=== PATIENT | female | born 1965 | race Caucasian/White ===

== ENCOUNTER 2019-08-24 10:34 | Emergency (ER) | payer OTHER, SELFPAY ==
[2019-08-24 10:38] VITALS: BP 120/102; PULSE 58; RESP 20; TEMP 36.5; O2SAT 98; BMI 28.3
--- NOTE | 2019-08-24 10:55 | DI.RAD.S_ITS ---
PROCEDURE: XR CHEST 1V INDICATIONS: chest pain TECHNIQUE: One view of the chest was acquired. COMPARISON: None. FINDINGS: Surgical changes and devices: None. Lungs and pleura: Lungs are clear. No pleural effusions or pneumothorax. Mediastinum: Mediastinal contours appear normal. Heart size is normal. Bones and chest wall: No suspicious bony lesions. Overlying soft tissues appear unremarkable. IMPRESSION: No acute cardiopulmonary findings. Dictated by: Nicky Ching M.D. on 08/24/2019 at 10:38 Approved by: Nicky Ching M.D. on 08/24/2019 at 10:39
--- NOTE | 2019-08-24 11:08 | ED_ITS ---
HPI - Chest Pain General Chief Complaint: Chest Pain Stated Complaint: Chest pain Time Seen by Provider: 08/24/19 10:38 Source: patient Mode of arrival: Ambulatory Limitations: no limitations History of Present Illness HPI narrative: Patient is a 54-year-old female with history of hypertension hyperlipidemia presenting with chest pain. She said she was driving her short drive to work when she had instant epigastric pain radiating up to her chin. The episodes lasted roughly a couple of seconds she had 4 episodes while driving she had not very much time between episodes. No shortness of breath no prior history of anything like this in the past. She is currently chest pain free now. She did not eat breakfast this morning she did take some of her medications this morning. MD complaint: chest pain Onset (ago): minute(s) Duration: now resolved Onset: during rest Pain location: substernal Quality: sharp Pain radiation: jaw/teeth Exacerbating factors: nothing Related Data Previous Rx's Medication Instructions Recorded azelaic acid [Azelex] 20 % TOPICAL BID PRN #30 gm 11/17/16 levothyroxine 0.05 mg PO QAM #90 tab 01/09/17 gemfibrozil 600 mg PO BIDAC #180 tab 01/16/17 doxycycline monohydrate 50 mg PO BID #60 cap 01/31/17 acyclovir 400 mg PO BID #180 tab 03/09/17 gabapentin [Neurontin] 800 mg PO HSP PRN #120 cap 04/24/17 citalopram 10 mg PO QDAY #90 tab 05/08/17 venlafaxine 75 mg PO SEE INSTRUCTIONS #90 tab 05/22/17 guhywyiclt-rszbuouiig-hvq-cod 0 PO SEE INSTRUCTIONS PRN #20 cap 05/25/17 estradiol 0.5 mg PO QDAY #90 tab 06/08/17 gabapentin 100 mg PO TID #270 cap 06/12/17 lorazepam 0.5 mg PO HSP PRN #28 tab 06/12/17 propranolol 20 mg PO TID #135 tab 06/12/17 Allergies Allergy/AdvReac Type Severity Reaction Status Date / Time latex [LATEX] Allergy Mild RASH Verified 08/24/19 11:35 povidone-iodine Allergy Mild RASH Verified 08/24/19 11:35 [POVIDONE-IODINE] simvastatin [SIMVASTATIN] Allergy Mild MYALGIAS Verified 08/24/19 11:35 Review of Systems Review of Systems Narrative: GENERAL: Denies chills, fatigue, malaise, fever, sweats, travel HEENT: Denies sinus pain, ear pain, sore throat, difficulty swallowing, neck pain RESPIRATORY: Denies dyspnea, cough, wheezing, hemoptysis, sputum. CARDIOVASCULAR: Denies chest pain, palpitations, orthopnea, edema GASTROINTESTINAL: Denies nausea, vomiting, abdominal pain, diarrhea, constipation, melena. : Denies dysuria, frequency, incontinence, hematuria, urinary retention, flank pain. MUSCULOSKELETAL: Denies weakness, joint pain, or bony pain SKIN: No rash, no erythema, no pruritus NEUROLOGIC: Denies weakness, dizziness, headache, numbness, change in speech, confusion PSYCHIATRIC: No concerning psychosocial issues. 12 point review of systems is negative except for those stated above and HPI Patient History Medical History Acquired hypothyroidism (11/17/16) Anxiety disorder (Chronic 04/26/11) Benign essential hypertension (03/17/14) Mixed hyperlipidemia (10/11/15) Surgical History Status post cone biopsy of cervix Status post endometrial ablation Status post laparoscopic cholecystectomy Status post laparoscopic supracervical hysterectomy (03/15/15) Status post tubal ligation Family History (Updated 08/24/19 @ 11:14 by Trice Hanson DO) Father No problems noted. Social History Smoking Status: Never smoker alcohol intake frequency: other Substance Use Type: does not use Exam Initial Vital Signs Initial Vital Signs: Vital Signs Temperature 97.7 F 08/24/19 10:38 Pulse Rate 58 L 08/24/19 10:38 Respiratory Rate 20 08/24/19 10:38 Blood Pressure 120/102 H 08/24/19 10:38 Pulse Oximetry 98 08/24/19 10:38 GENERAL: Well-appearing, well-nourished and in no acute distress. HEENT: Head atraumatic,EOMI, pupils reactive, face symmetric, moist mucous membranes CARDIOVASCULAR: Regular rate and rhythm without murmurs, rubs or gallops. RESPIRATORY: Breath sounds equal bilaterally, no wheezes rales or rhonchi. ABDOMEN: Soft, nontender. Normoactive bowel sounds all 4 quadrants. No guarding or rebound. EXTREMITIES: Normal range of motion, no clubbing or edema. Neurovascularly intact NEUROLOGICAL: Alert and oriented x4.Normal gait and speech. SKIN: Warm, dry, no laceration, no petechiae, no rashes or lesions. Scores HEART Score Heart Score history: Slightly Suspicious Heart Score EKG: Normal Heart Score Age: 45-64 years old Heart Score risk factors: 1-2 risk factors Heart Score troponin: < or = to normal limit Heart Score Total: 2 Course Orders Ordered: ED Orders 08/24/19 10:51 Complete Blood Count AUTO DIFF Stat Comprehensive Metabolic Panel Stat Lipase Stat Troponin & CK Cardiac Panel Stat 08/24/19 10:55 XR chest 1V Stat 08/24/19 13:05 Troponin I Stat Discontinued Medications Aspirin (Aspirin Chew) 324 mg PO NOW ONE Stop: 08/24/19 10:56 Last Admin: 08/24/19 11:49 Dose: 324 mg Documented by: GREGG Sodium Chloride (Normal Saline 0.9%) 1,000 mls @ 150 mls/hr IV CONT SIOBHAN Last Admin: 08/24/19 11:50 Dose: 150 mls/hr Documented by: GREGG Vital Signs Vital signs: Vital Signs - 8 hr 08/24/19 10:38 08/24/19 12:01 08/24/19 12:30 Temperature 97.7 F Pulse Rate 58 L 57 L 107 H Respiratory Rate 20 21 19 Blood Pressure 120/102 H Blood Pressure [Left Arm] 122/76 107/97 H Pulse Oximetry 98 99 97 08/24/19 12:55 08/24/19 13:56 08/24/19 14:12 Temperature Pulse Rate 102 H 58 L 64 Respiratory Rate 18 13 20 Blood Pressure 120/75 Blood Pressure [Left Arm] 105/98 H 124/70 Pulse Oximetry 98 100 96 MDM - Chest Pain Lab Data Attestation: I reviewed the patient's lab results. Result diagrams: 08/24/19 10:51 08/24/19 10:51 Labs: Lab Results 08/24/19 08/24/19 08/24/19 Range/Units 10:51 10:51 13:05 WBC 6.2 (4.5-11.0) X10^3/uL RBC 4.21 (4.0-5.2) X10^6/uL Hgb 12.8 (12.0-16.0) g/dL Hct 38.6 (36-46) % MCV 91.6 (80-100) fL MCH 30.4 (26-34) PG MCHC 33.2 (30-36) % RDW 13.4 (11.6-14.8) % Plt Count 278 (150-400) X10^3/uL Neut % (Auto) 54.7 (50-75) % Lymph % (Auto) 33.6 (25-40) % [place] % (Auto) 8.0 (3-14) % Eos % (Auto) 2.8 (2-4) % Baso % (Auto) 0.9 (0-2) % Neut # (Auto) 3400 (8414-8452) /uL Lymph # (Auto) 2100 (1986-5207) /uL [place] # (Auto) 500 (0-900) /uL Eos # (Auto) 200 (0-450) /uL Baso # (Auto) 100 (0-100) /uL Sodium 139 (137-145) mmol/L Potassium 4.5 (3.4-5.1) mmol/L Chloride 104 (98-107) mmol/L Carbon Dioxide 28 (22-32) mmol/L BUN 16 (7-17) mg/dL Creatinine 0.80 (0.52-1.04) mg/dL Estimated GFR > 60.0 (>60) mL/min BUN/Creatinine Ratio 20.0 (6-22) Glucose 88 (70-100) mg/dL Calcium 9.6 (8.4-10.2) mg/dL Total Bilirubin 0.5 (0.2-1.3) mg/dL AST 30 (14-36) IU/L ALT 24 (<35) IU/L Alkaline Phosphatase 107 (38-126) U/L Total Creatine Kinase 41 (30-135) U/L CK-MB (CK-2) TNP CK-MB (CK-2) Rel Index TNP Troponin I < 0.012 < 0.012 (0.01-0.034) ng/mL Total Protein 7.4 (6.3-8.2) g/dL Albumin 4.5 (3.5-5.0) g/dL Globulin 2.9 (1.7-4.1) g/dL Albumin/Globulin Ratio 1.6 (1.0-2.8) Lipase 134 (23-300) U/L Urine Dip Bedside Urine Glucose Negative Bedside Urine Bilirubin - Negative Bedside Urine Ketone - Negative Urine Specific [place] 1.010 Bedside Urine Occult Blood - Negative Bedside Urine pH 6.0 Bedside Urine Protein - Negative Bedside Urine Urobilinogen - Negative Bedside Urine Nitrite - Negative Bedside Urine Leukocytes - Negative Esterase Imaging Data Chest x-ray: Radiologist's impression: PROCEDURE: XR CHEST 1V INDICATIONS: chest pain TECHNIQUE: One view of the chest was acquired. COMPARISON: None. FINDINGS: Surgical changes and devices: None. Lungs and pleura: Lungs are clear. No pleural effusions or pneumothorax. Mediastinum: Mediastinal contours appear normal. Heart size is normal. Bones and chest wall: No suspicious bony lesions. Overlying soft tissues appear unremarkable. IMPRESSION: No acute cardiopulmonary findings. Dictated by: Nicky Ching M.D. on 08/24/2019 at 10:38 ECG Data Attestation: I personally reviewed and interpreted this ECG as follows: Prior ECG tracings: not available for review Interpretation: Normal sinus rhythm rate 52 p.r. interval [address] elevation depression or T-wave inversion no priors to compare MDM Narrative Medical decision making narrative: Patient's signs symptoms not consistent with cardiac. She has not had any recurrence of chest pain in the emergency department low risk heart score a repeat troponin negative. Recommend outpatient follow-up. I discussed all findings with the patient and , Education has been performed regarding treatment plan, diagnosis, warning signs and symptoms and all concerns have been addressed. Verbally agree with and understood all of the above. Discharge Plan Departure Patient Disposition: Home Clinical Impression: Atypical chest pain Discharge Date/Time: 08/24/19 14:13 Instructions: DI for Atypical Chest Pain Activity Restrictions/Additional Instructions: *You have been diagnosed with atypical chest pain *What to do: At this time you are low risk for cardiac chest pain. However still recommend outpatient follow-up with his PCP may require more cardiac testing such as stress test and or echocardiogram *Continue to take medications as directed *Follow up with your primary care provider in 2-3 days *Return to ER if you should have recurrent or change in chest pain or frequency increased shortness of breath with exertion or any new, worsening or concerning symptoms Prescriptions: No Action azelaic acid [Azelex] 30 GM cream 20 % Topical BID PRNQty: 30 RF: 0 levothyroxine 50 MCG tablet 0.05 mg PO QAM Qty: 90 RF: 1 gemfibrozil 600 MG tablet 600 mg PO BIDAC Qty: 180 RF: 1 doxycycline monohydrate 50 MG capsule 50 mg PO BID Qty: 60 RF: 0 acyclovir 400 MG tablet 400 mg PO BID Qty: 180 RF: 0 gabapentin [Neurontin] 400 MG capsule 800 mg PO HSP PRNQty: 120 RF: 1 citalopram 10 MG tablet 10 mg PO QDAY Qty: 90 RF: 0 venlafaxine 75 MG tablet 75 mg PO SEE INSTRUCTIONS Qty: 90 RF: 2 pncnlwsjug-clizbkzilx-rai-cod 1 EACH capsule 0 PO SEE INSTRUCTIONS PRNQty: 20 RF: 0 estradiol 0.5 MG tablet 0.5 mg PO QDAY Qty: 90 RF: 0 propranolol 40 MG tablet 20 mg PO TID Qty: 135 RF: 1 lorazepam 0.5 MG tablet 0.5 mg PO HSP PRNQty: 28 RF: 0 gabapentin 100 MG capsule 100 mg PO TID Qty: 270 RF: 1 Referrals: Shakira Lopez ARNP [Primary Care Provider] -
[2019-08-24 11:11] LABS: Alanine Aminotransferase 24 IU/L (<35); Albumin 4.5 g/dL (3.5-5.0); Albumin Globulin Ratio 1.6 (1.0-2.8); Alkaline Phosphatase 107 U/L (38-126); Aspartate Aminotransferase 30 IU/L (14-36); Bilirubin Total 0.5 mg/dL (0.2-1.3); Blood Urea Nitrogen 16 mg/dL (7-17); Calcium 9.6 mg/dL (8.4-10.2); Carbon Dioxide 28 mmol/L (22-32); Chloride 104 mmol/L (98-107); Creatine Kinase 41 U/L (30-135); Estimated Glomerular Filt Rate > 60.0 mL/min (>60); Globulin 2.9 g/dL (1.7-4.1); Glucose 88 mg/dL (70-100); HEMOLYSIS < 15 (0-50); Lipase 134 U/L (23-300); Potassium 4.5 mmol/L (3.4-5.1); Sodium 139 mmol/L (137-145); Total Protein 7.4 g/dL (6.3-8.2)
[2019-08-24 11:15] LABS: Add Manual Diff / Slide Review NO; Basophils Absolute Auto 100 /uL (0-100); Basophils Percent Auto 0.9 % (0-2); Eosinophils Absolute Auto 200 /uL (0-450); Eosinophils Percent Auto 2.8 % (2-4); Hematocrit 38.6 % (36-46); Hemoglobin 12.8 g/dL (12.0-16.0); Lymphocytes Absolute Auto 2100 /uL (1100-4500); Lymphocytes Percent Auto 33.6 % (25-40); Mean Corpuscular HGB Conc 33.2 % (30-36); Mean Corpuscular Hemoglobin 30.4 PG (26-34); Mean Corpuscular Volume 91.6 fL (80-100); Monocytes Absolute Auto 500 /uL (0-900); Neutrophils Absolute Auto 3400 /uL (1500-7000); Neutrophils Percent Auto 54.7 % (50-75); Platelet Count 278 X10^3/uL (150-400); Red Blood Cell Count 4.21 X10^6/uL (4.0-5.2); Red Cell Distribution Width 13.4 % (11.6-14.8); White Blood Cell Count 6.2 X10^3/uL (4.5-11.0)
[2019-08-24 11:22] LABS: Troponin I < 0.012 ng/mL (0.01-0.034)
[2019-08-24] MEDS: ASPIRIN 81 MG CHEW TAB 324 MG PO (11:49)
[2019-08-24] MEDS: SODIUM CHLORIDE 0.9% 1,000 ML 150 ML IV (11:50)
[2019-08-24 12:01] VITALS: BP 122/76; PULSE 57; RESP 21; O2SAT 99
[2019-08-24 12:30] VITALS: BP 107/97; PULSE 107; RESP 19; O2SAT 97
[2019-08-24 12:55] VITALS: BP 105/98; PULSE 102; RESP 18; O2SAT 98
[2019-08-24 13:49] LABS: Troponin I < 0.012 ng/mL (0.01-0.034)
[2019-08-24 13:56] VITALS: BP 124/70; PULSE 58; RESP 13; O2SAT 100
[2019-08-24 14:12] VITALS: BP 120/75; PULSE 64; RESP 20; O2SAT 96
== END 2019-08-24 14:13 | disposition home or self-care (01) ==
PROVIDERS: Emergency Provider Emergency Medicine; PCP Nurse Practitioner
DX: R07.89 Other chest pain (principal)
CPT/HCPCS: 36415; 71045; 80053; 81003; 82550; 83690; 84484; 85025; 93005; 99283; 99285

== ENCOUNTER → 2024-06-16 13:38 | Outpatient (CLI) | payer OTHER, SELFPAY ==
--- NOTE | 2024-06-16 | DI.ECHO.S_ITS ---
[facility] : : [id number] : : [place] : : [id number] : : Phone: [phone] Echocardiogram Report + + :Name: JOAQUIN MAYO Study Date: 06/16/2024 Height: 64 in : :[facility] ReadingLocation: Weight: 168 lb : : Gender: Female BSA: 1.8 m2 : :: 1965 Age: 59 yrs BP: 132/81 mmHg: :Reason For Study: HYPOTENSION, TACHYCARDIA, SVT : :Ordering Physician: REX, : :PEDRO Haro Performed By: Buddy Barakat : :Referring: PEDRO GOODMAN : + + Interpretation Summary The left ventricle is normal in size. The left ventricular ejection fraction is normal. The ejection fraction is estimated to be 55-60%. The right ventricle is normal in size and function. No significant valvular pathology seen. The IVC is of normal diameter and collapses greater than 50% with a sniff. This suggests a low right atrial pressure of 3 mm Hg. Procedure: A two-dimensional transthoracic echocardiogram with color flow and Doppler was performed. The study quality was technically adequate. There is no prior echocardiogram noted for this patient. The patient was in normal sinus rhythm during the exam. Left Ventricle: The left ventricle is normal in size. There is normal left ventricular wall thickness. There is no ventricular septal defect visualized. There is no thrombus. The ejection fraction is estimated to be 55-60%. The left ventricular ejection fraction is normal. There are no focal wall motion abnormalities. MV E/A: 1.0 Med Peak E' Joseluis: 5.9 cm/sec E/E' med: 12.5. Right Ventricle: The right ventricle is normal in size and function. Atria: The left atrial size is normal. Right atrial size is normal. The interatrial septum grossly appears intact with no obvious evidence for an atrial septal defect. The thickening of interatrial septum suggests lipomatous hypertrophy. Mitral Valve: The mitral valve is normal in structure and function. There is trace mitral regurgitation. Aortic Valve: The aortic valve is trileaflet. The aortic valve opens well. There is no aortic valve stenosis. No aortic regurgitation is present. Tricuspid Valve: The tricuspid valve is normal in structure and function. There is trace tricuspid regurgitation. The right ventricular systolic pressure is estimated to be at least 29 mmHg based on an estimated right atrial pressure of 3 mm Hg. Pulmonic Valve: The pulmonic valve is normal in structure and function. There is trace pulmonic regurgitation. Great Vessels: The aortic root is normal size. The dimensions of the ascending aorta are normal. The aortic arch is normal in size. The pulmonary artery is normal size. The IVC is of normal diameter and collapses greater than 50% with a sniff. This suggests a low right atrial pressure of 3 mm Hg. Pericardium/ Pleura There is no pericardial effusion. There is no pleural effusion. MMode/2D Measurements & Calculations LVIDd: 5.3 cm LVOT diam: 2.0 cm LVIDs: 3.6 cm Ao root diam: 3.2 cm FS: 31.9 % asc Aorta Diam: 3.7 cm EPSS: 0.80 cm Ao Arch Diam (Prox Trans): 3.0 cm IVSd: 0.78 cm LVPWd: 0.82 cm LV wei. diameter/BSA (cm/m^2): 2.9 LV sys. diameter/BSA (cm/m^2): 2.0 LA A2 area: 14.7 cm2 RA long axis: 4.5 cm LA A4 area: 20.3 cm2 RA area: 12.3 cm2 LA length (vol): 5.9 cm RA vol: 28.7 ml LA vol: 42.9 ml RA : 15.8 ml/m2 LA vol index: 23.6 ml/m2 IVC diam: 1.5 cm TAPSE: 2.3 cm Doppler Measurements & Calculations Ao V2 max: 142.2 cm/sec LVOT Max Joseluis: 111.0 cm/sec Ao V2 mean: 106.6 cm/sec LV V1 max P.9 mmHg Ao max P.1 mmHg LV V1 VTI: 27.9 cm Ao mean P.9 mmHg VAZQUEZ(I,D): 2.6 cm2 Ao V2 VTI: 35.7 cm VAZQUEZ(V,D): 2.6 cm2 sev ratio: 0.78 VAZQUEZ indexed to BSA (cm^2/m^2): 1.4 MV E max joseluis: 73.7 cm/sec TR max joseluis: 254.8 cm/sec MV A max joseluis: 71.6 cm/sec TR max P.0 mmHg MV E/A: 1.0 PA V2 max: 83.7 cm/sec Med Peak E' Joseluis: 5.9 cm/sec PA V2 mean: 55.7 cm/sec E/E' med: 12.5 PA mean P.4 mmHg Lat Peak E' Joseluis: 8.9 cm/sec PA pr(Accel): 31.0 mmHg E/E' lat: 8.3 E/e' average: 10.4 MV dec time: 0.22 sec SV(LVOT): 91.5 ml Reading Physician:02:46 PM
== END ==
PROVIDERS: PCP Family Medicine; Referring Provider Family Medicine; Visit Provider Family Medicine
DX: I95.9 Hypotension, unspecified (principal); I47.10 Supraventricular tachycardia, unspecified; R07.89 Other chest pain
CPT/HCPCS: 93306